=== PATIENT | female | born 1955 | race Caucasian/White ===

== ENCOUNTER 2016-12-10 06:39 | Emergency (ER) | payer BC ==
[2016-12-10] MEDS ORDERED: SILVER NITRATE 1 APP APP TOPICAL ONE (07:32)
--- NOTE | 2016-12-10 07:33 | ER NURSING DOCUMENTATION ---
Nurse[facility] Notes [facility] Name:Betsy Hart Age:61 yrs Sex:Female :1955 Arrival Date:12/10/2016 Time:06:39 Bed1 Private MD: Diagnosis:Open Wound of Mouth Presentation: 12/10 06:41 Acuity: AMARA 4 rh 06:46 Presenting complaint: Patient states: Pt has a ulceration on the inside of the bottom rh lip. It has been oozing for 24 hours now. Transition of care: Home. 06:46 Method Of Arrival: Private Vehicle rh 07:27 Acuity: AMARA 5 lp Triage Assessment: 06:48 General: Appears in no apparent distress, Behavior is cooperative. Pain: Denies pain. rh EENT: pt has small circular ulceration on the inside of the bottom lip on the right, oozing blood. Historical: - Allergies: No known drug Allergies; - Home Meds: 1. Verapamil Oral 2. Crestor oral 3. levothyroxine oral - PMHx: Hypertension; HIGH CHOLESTEROL; THYROID PROBLEM; - PSHx: ; Knee surgery; - Tetanus: < 10 years. - Ebola Screening: : Patient negative for fever greater than or equal to 101.5 degrees Fahrenheit, and additional compatible Ebola Virus Disease symptoms. - Immunization history: Flu Vaccine < 1 year. - Social history: Smoking status: Patient states former smoker of tobacco. Screenin:49 Infectious Disease Risk None. Abuse screen: Denies threats or abuse. Denies injuries rh from another. Nutritional screening: No deficits noted. Assessment: 06:49 See Triage Assessment done by same RN. rh Vital Signs: 06:48 BP 169 / 101; Pulse 80; Resp 18; Temp 98.6(O); Pulse Ox 94% on R/A; Weight 51.71 kg; rh Height 5 ft. 3 in. (160.02 cm); Pain 0/10; 06:48 Body Mass Index 20.19 (51.71 kg, 160.02 cm) rh ED Course: 06:41 Patient arrived in ED. ma1 06:41 Marleny Melton is Primary Nurse. 06:41 Triage completed. 06:49 Notified ED Physician of patient's arrival and chief complaint. Dr. Elizabeth notified. 06:49 Valuables Remains with patient Patient has correct armband on for positive rh identification. Bed in low position. Call light in reach. Side rails up X 1. 07:27 Brendan Elizabeth MD is Attending Physician. cd Administered Medications: No medications were administered Outcome: 07:26 Discharged to home ambulatory. 07:26 Condition: improved 07:26 Instructed on discharge instructions, follow up and referral plans. 07:28 Discharge ordered by . cd 07:32 Patient left the ED. 12/11 10:20 Discharge F/U Call: Unable to reach: no answer la Signatures: Mar Mauro, RN RN Brendan Elizabeth MD MD cd Alexander, Linda la Hofsess, Rachel Wendy Ruiz
--- NOTE | 2016-12-10 07:33 | ER PHYSICIAN DOCUMENTATION ---
Physician Documentation [facility] Name:Betsy Hart Age:61 yrs Sex:Female :1955 Arrival Date:12/10/2016 Time:06:39 Bed1 Private MD: Brendan Black Disposition: 12/10/16 07:28 Discharged to Home/Self Care. Impression: Open Wound of Mouth. - Condition is Good. - Discharge Instructions: Capillary Hemangioma, Lobular - PYOGENIC GRANULOMA. - Medical Reconciliation form form. - Follow up: Private Physician; When: 4- 6 days; Reason: Recheck today's complaints, Continuance of care. - Problem is an ongoing problem. - Symptoms are resolved. - Notes: Apply pressure for 45 minutes if it starts again. May also use a Tea bag See and Oral Surfeon or Plastic Surgeon to have this Hemangioma removed. HPI: 12/10 07:10 This 61 yrs old Female presents to ER via Private Vehicle with complaints of cd Lip Injury. 07:10 The patient presents with bleeding. The problem is located in the lower lip. Onset: The cd symptom(s)/episode began/occurred acutely, last night. Duration: The symptoms are continuous, but are markedly better than the original presentation, The patient has had a lesion on her lower lip for as long as she can remember. It started bleeding / oozing last night and would not stop. She applied pressure...no signs of infection. Historical: - Allergies: No known drug Allergies; - Home Meds: 1. Verapamil Oral 2. Crestor oral 3. levothyroxine oral - PMHx: Hypertension; HIGH CHOLESTEROL; THYROID PROBLEM; - PSHx: ; Knee surgery; - Tetanus: < 10 years. - Ebola Screening: : Patient negative for fever greater than or equal to 101.5 degrees Fahrenheit, and additional compatible Ebola Virus Disease symptoms. - Immunization history: Flu Vaccine < 1 year. - Social history: Smoking status: Patient states former smoker of tobacco. ROS: 07:10 ENT: Positive for bleeding from small lower lip lesion. cd 07:10 All other systems are negative. Exam: 07:10 Constitutional: The patient appears alert, awake, anxious. cd 07:10 ENT: Mouth: Lips: patient has a 4 mm Hemangioma on her lower inner lip. It is currently not bleeding. No signs of infection. 07:12 ENT: Dental exam: normal. cd Vital Signs: 06:48 BP 169 / 101; Pulse 80; Resp 18; Temp 98.6(O); Pulse Ox 94% on R/A; Weight 51.71 kg; rh Height 5 ft. 3 in. (160.02 cm); Pain 0/10; 06:48 Body Mass Index 20.19 (51.71 kg, 160.02 cm) rh MDM: 07:25 Data reviewed: vital signs, nurses notes, old medical records, and as a result, I will cd discharge patient. Counseling: I had a detailed discussion with the patient and/or guardian regarding: the historical points, exam findings, and any diagnostic results supporting the discharge/admit diagnosis, the need for outpatient follow up, for a recheck, for a referral to a specialist, Oral or Plastic Surgeon for excision of the hemangioma. 07:27 Patient medically screened. cd Dispensed Medications: No medications were administered Signatures: Mar Mauro RN RN Brendan Elizabeth MD MD Marleny Melton
== END 2016-12-10 07:32 | disposition home or self-care (01) ==
LOC: ER 06:39
DX: D18.09 Hemangioma of other sites (principal); I10 Essential (primary) hypertension; Z79.899 Other long term (current) drug therapy
CPT/HCPCS: 99281